=== PATIENT | female | born 1970 | race Caucasian/White ===

== ENCOUNTER 2023-01-21 09:09 | Outpatient (AMB) | payer BC, SELFPAY ==
[2023-01-21 09:29] VITALS: BP 132/82; PULSE 99; TEMP 36.9; O2SAT 99
--- NOTE | 2023-01-21 09:29 | AM.OFFWIN_ITS ---
Intake Vital Signs 01/21/23 09:29 BMI Reason not done Patient refused/unable BP 132/82 Blood Pressure Location Rt brachial Position Sitting Pulse 99 Pulse Source Pulse Oximeter Temp 98.5 F Temp Source Oral Pulse Oximetry (%) 99 Oxygen Delivery Method Room Air Intake Visit Reasons: EP, nasal congestion (masked) Intake Note: Pt is here today c/o nasal congestion [id number]: coughing post nasal drip Allergies No Known Allergies Allergy (Verified 01/21/23 09:30) HPI HPI Comments History of Present Illness Details This is a 52-year-old female with a past medical history of hypertension seasonal allergies presenting for evaluation of sinus pressure, sore throat and fatigue that she has had for the past 2 weeks. Patient states that she is compliant with her sertraline which she takes twice daily, Neti pot and Flonase. The patient denies having any fevers or chills however does describe increased sinus pressure and unrelenting fatigue. Review of Systems Const All systems reviewed & are unremarkable except as noted in HPI and below Denies chills, Reports fatigue and Denies fever(s) Eyes Reports as per HPI ENT Reports as per HPI, Reports otalgia, Denies mouth pain, Reports nasal congestion, Denies nasal discharge, Reports post nasal drip, Reports sinus pain, Reports sinus pressure and Reports sore throat Card Reports as per HPI Resp Reports as per HPI Endo Reports fatigue Physical Exam Vital Signs: Last Vital Signs Temp 98.5 F 01/21/23 09:29 Pulse 99 01/21/23 09:29 BP 132/82 01/21/23 09:29 Pulse Ox 99 01/21/23 09:29 Oxygen Delivery Method Room Air 01/21/23 09:29 Pt is afebrile. Const General: cooperative, healthy appearing and no acute distress; No ill appearing Nutritional Appearance: overweight Orientation/consciousness: patient oriented x3 Limitations: no limitations HEENT Head: Yes normal to inspection and Yes normocephalic Ears: hearing grossly normal bilaterally, TM's normal bilaterally and EAC's normal General nose exam: Normal external nose present Face and sinus: No erythema, No edema, No fluctuance, Yes sinus tenderness and Yes Facial tenderness on exam of face and sinuses Mouth: oropharynx normal Throat: Yes postnasal drainage Resp Effort & Inspection: normal respiratory effort Auscultation: clear to auscultation bilaterally Cardio Rate: regular rate Skin General skin exam: no rashes or lesions noted Neuro General: patient oriented x3 Psych Appearance: grossly normal Mental Status: mental status grossly normal Insight: Good insight present (Psych) Judgement: Good judgement present (Psych) Assessment & Plan Assessment & Plan (1) Acute maxillary sinusitis: Code(s): J01.00 - Acute maxillary sinusitis, unspecified Plan: Antibiotic therapy will be prescribed given her chronicity of symptoms; patient to follow-up with PCP for persisting symptoms as needed. Medications: New 2 doxycycline hyclate 100 mg PO BID 14 tabs 0RF Coding Level of Care Code New Pt Level 3 (33562) Diagnoses Acute maxillary sinusitis J01.00 Time Spent (min) 20
== END 2023-01-21 09:59 | disposition home or self-care (01) ==
PROVIDERS: Visit Provider Physician Assistant
DX: J01.00 Acute maxillary sinusitis, unspecified (principal)
CPT/HCPCS: 99203